=== PATIENT | male | born 1975 | race Caucasian/White ===

== ENCOUNTER → 2022-09-11 | Outpatient (CLI) | payer OTHER ==
--- NOTE | 2022-09-11 10:12 | XR ---
EXAMINATION TYPE: XR ribs bilat w pa chest xray DATE OF EXAM: 09/11/2022 COMPARISON: NONE HISTORY: Pain TECHNIQUE: 9 views submitted FINDINGS: Lungs are clear with no sizable pneumothorax. Rib cage is intact with no acute displaced ri b fracture. Surgical clips are seen in the gallbladder fossa. IMPRESSION: No acute displaced rib fracture.
== END | disposition home or self-care (01) ==
LOC: RADXRMAIN 09:02
PROVIDERS: ATTEND Internal Medicine
DX: S23.41XA Sprain of ribs, initial encounter (principal)
CPT/HCPCS: 71111

== ENCOUNTER → 2022-10-13 | Outpatient (CLI) | payer OTHER ==
--- NOTE | 2022-10-13 10:00 | US ---
EXAMINATION TYPE: US abdomen complete DATE OF EXAM: 10/13/2022 COMPARISON: US 2009 CLINICAL INDICATION: Male, 46 years old with history of R10.9 ABN PAIN; Pt states generalized ABD jaelyn n- GB surgically absent TECHNIQUE: Multiple sonographic images of the abdomen are obtained. FINDINGS: EXAM MEASUREMENTS: Liver Length: 18.2 cm CBD: 0.5 cm Spleen: 11.5 cm Right Kidney: 12.3 x 5.8 x 6.0 cm Left Kidney: 11.8 x 6.0 x 5.7 cm SUBSTATION ELECTRICIAN SUPERVISOR NOTES: Pancreas: Head wnl, body and tail obscured by overlying bowel gas Liver: Heterogeneous, enlarged Gallbladder: Surgically absent CBD: wnl Spleen: wnl Right Kidney: wnl Left Kidney: wnl Upper IVC: wnl Abd Aorta: Proximal portion obscured by overlying bowel gas, mid and distal portion wnl The liver is enlarged and heterogenous in echotexture. No focal lesion identified. The intrahepatic p ortion of the IVC and visualized abdominal aorta are within normal limits. The proximal portion is ob scured by overlying bowel gas. The gallbladder surgically absent. Common bile duct is unremarkable. The visualized portions of the pancreatic head are unremarkable. The body and tail is obscured by ov erlying bowel gas. The spleen is unremarkable. Kidneys are symmetric and free of hydronephrosis. No renal lesions are seen. IMPRESSION: 1. No acute process. 2. Hepatomegaly with heterogenous increased echotexture of the liver which is most commonly seen with hepatic steatosis. No focal lesion identified. 3. Postcholecystectomy changes.
== END | disposition home or self-care (01) ==
LOC: RADUSWWP 08:03
PROVIDERS: ATTEND Internal Medicine
DX: R16.0 Hepatomegaly, not elsewhere classified (principal); R10.9 Unspecified abdominal pain; Z90.49 Acquired absence of other specified parts of digestive tract
CPT/HCPCS: 76700

== ENCOUNTER 2023-03-24 06:05 | Emergency (ER) | payer OTHER ==
[2023-03-24 06:32] VITALS: TEMP 97.8
[2023-03-24] MEDS ORDERED: SODIUM CHLORIDE 0.9% 500 ML 500 ML IV ONE (06:58)
[2023-03-24] MEDS ORDERED: FAMOTIDINE 20 MG/2 ML VIAL IV STA (06:58)
[2023-03-24] MEDS ORDERED: METOCLOPRAMIDE 5 MG/ML 2 ML VIAL IVP STA (06:58)
[2023-03-24] MEDS ORDERED: SODIUM CHLORIDE 0.9% 1,000 ML IV ONE (06:58)
[2023-03-24] MEDS ORDERED: DICYCLOMINE 20 MG TAB PO STA (06:58)
[2023-03-24 07:00] LABS: Basophils % (A) 0 %; Eosinophils # (A) 0.1 k/uL (0-0.7); Eosinophils % (A) 2 %; HCT 49.3 % (39.0-53.0); HGB 16.9 gm/dL (13.0-17.5); Lymphocytes # (A) 1.8 k/uL (1.0-4.8); Lymphocytes % (A) 29 %; MCH 30.7 pg (25.0-35.0); MCHC 34.3 g/dL (31.0-37.0); MCV 89.6 fL (80.0-100.0); Mean Platelet Volume 7.3; Monocytes # (A) 0.4 k/uL (0-1.0); Monocytes % (A) 7 %; Neutrophils # (A) 3.9 k/uL (1.3-7.7); Neutrophils % (A) 61 %; Platelet Count 257 k/uL (150-450); RDW 12.1 % (11.5-15.5); WBC 6.4 k/uL (3.8-10.6)
--- NOTE | 2023-03-24 07:14 | ED ---
Abdominal Pain HPI - General Chief Complaint: Abdominal Pain Stated Complaint: Abdominal Pain Time Seen by Provider: 03/24/23 06:12 Source: patient, RN notes reviewed Mode of arrival: ambulatory Limitations: no limitations - History of Present Illness Initial Comments: 47-year-old male presents emergency Department with chief complaint of abdominal discomfort, bloating. Patient states that started approximate one month ago by his gradual he worsen. States he always had some bowel issues after his cholecystectomy but this is much worsened usual. He's had no prior colonoscopy. Denies any melena, hematochezia, 16 nausea vomiting diarrhea or change in bowel habits. Patient states pain is greater than lower abdomen. Patient denies any other abdominal surgeries. - Related Data Allergies Allergy/AdvReac Type Severity Reaction Status Date / Time No Known Allergies Allergy Verified 03/24/23 06:10 Review of Systems ROS Statement: Those systems with pertinent positive or pertinent negative responses have been documented in the HPI. ROS Other: All systems not noted in ROS Statement are negative. Past Medical History Past Medical History: GERD/Reflux, Hyperlipidemia, Hypertension History of Any Multi-Drug Resistant Organisms: None Reported Past Surgical History: Cholecystectomy, Joint Replacement Additional Past Surgical History / Comment(s): Left knee surgery Past Psychological History: Anxiety Smoking Status: Former smoker Past Alcohol Use History: Occasional Past Drug Use History: Marijuana General Exam Limitations: no limitations General appearance: alert, in no apparent distress Head exam: Present: atraumatic, normocephalic, normal inspection Eye exam: Present: normal appearance, PERRL, EOMI. Absent: scleral icterus, conjunctival injection, periorbital swelling ENT exam: Present: normal exam, normal oropharynx, mucous membranes moist Neck exam: Present: normal inspection, full ROM. Absent: tenderness, meningismus, lymphadenopathy Respiratory exam: Present: normal lung sounds bilaterally. Absent: respiratory distress, wheezes, rales, rhonchi, stridor Cardiovascular Exam: Present: regular rate, normal rhythm, normal heart sounds. Absent: systolic murmur, diastolic murmur, rubs, gallop, clicks GI/Abdominal exam: Present: soft, tenderness, normal bowel sounds. Absent: distended, guarding, rebound, rigid Back exam: Absent: CVA tenderness (R), CVA tenderness (L) Neurological exam: Present: alert Skin exam: Present: warm, dry, intact, normal color. Absent: rash Course Vital Signs 03/24/23 03/24/23 06:07 08:23 Temperature 97.8 F 97.8 F Pulse Rate 59 L 66 Respiratory 18 17 Rate Blood Pressure 132/89 147/98 O2 Sat by Pulse 95 98 Oximetry Medical Decision Making - Medical Decision Making Was pt. sent in by a medical professional or institution (, SHIRIN, EXERCISE PHYSIOLOGIST CERTIFIED, urgent care, hospital, or [facility]...) When possible be specific @ -No Did you speak to anyone other than the patient for history (EMS, parent, family, police, friend...)? What history was obtained from this source @ -No Did you review nursing and triage notes (agree or disagree)? Why? @ -I reviewed and agree with nursing and triage notes Were old charts reviewed (outside hosp., previous admission, EMS record, old EKG, old radiological studies, urgent care reports/EKG's, [facility] records)? Report findings @ -No old charts were reviewed Differential Diagnosis (chest pain, altered mental status, abdominal pain women, abdominal pain men, vaginal bleeding, weakness, fever, dyspnea, syncope, headache, dizziness, GI bleed, back pain, seizure, CVA, palpatations, mental health, musculoskeletal)? @ -Differential Abdominal Pain Men: Appendicitis, cholecystitis, diverticulosis, ischemic bowel, pancreatitis, hepatitis, UTI, gastroenteritis, AAA, incarcerated hernia, bowel obstruction, constipation, inflammatory bowel, hepatitis, peptic ulcer disease, splenic infarction, perforated viscus, testicular torsion, this is not meant to be an all-inclusive list EKG interpreted by me (3pts min.). @ -None X-rays interpreted by me (1pt min.). @ -None done CT interpreted by me (1pt min.). @ -CT of the pelvis shows evidence of diverticulosis, mild ileus versus enteritis changes U/S interpreted by me (1pt. min.). @ -None done What testing was considered but not performed or refused? (CT, X-rays, U/S, labs)? Why? @ -None What meds were considered but not given or refused? Why? @ -None Did you discuss the management of the patient with other professionals (professionals i.e. SHIRIN Reynolds, EXERCISE PHYSIOLOGIST CERTIFIED, lab, RT, psych nurse, social insurance administrator, crystal lapper, teacher, emergency communications officer, case managers)? Give summary @ -No Was smoking cessation discussed for >3mins.? @ -No Was critical care preformed (if so, how long)? @ -No Were there social determinants of health that impacted care today? How? (Homelessness, low income, unemployed, alcoholism, drug addiction, transportation, low edu. Level, literacy, decrease access to med. care, long-term, rehab)? @ -No Was there de-escalation of care discussed even if they declined (Discuss DNR or withdrawal of care, Hospice)? DNR status @ -No What co-morbidities impacted this encounter? (DM, HTN, Smoking, COPD, CAD, Cancer, CVA, ARF, Chemo, Hep., AIDS, mental health diagnosis, sleep apnea, morbid obesity)? @ -None Was patient admitted / discharged? Hospital course, mention meds given and route, prescriptions, significant lab abnormalities, going to OR and other pertinent info. @ -Discharge patient left wrist there is, CT is unremarkable. Patient may have underlying GI disorder follow-up with Dr. Diop. Patient will start probiotic return parameters discussed. Undiagnosed new problem with uncertain prognosis? @ -No Drug Therapy requiring intensive monitoring for toxicity (Heparin, Nitro, Insulin, Cardizem)? @ -No Were any procedures done? @ -No Diagnosis/symptom? @ -Abdominal pain Acute, or Chronic, or Acute on Chronic? @ -Acute Uncomplicated (without systemic symptoms) or Complicated (systemic symptoms)? @ -Uncomplicated Side effects of treatment? @ -No Exacerbation, Progression, or Severe Exacerbation? @ -No Poses a threat to life or bodily function? How? (Chest pain, [place], [place], pneumonia, PE, COPD, DKA, ARF, appy, cholecystitis, CVA, Diverticulitis, Homicidal, Suicidal, threat to staff... and all critical care pts) @ -No - Lab Data Result diagrams: 03/24/23 06:39 03/24/23 06:39 Lab Results 03/24/23 03/24/23 03/24/23 Range/Units 06:39 06:39 06:39 WBC 6.4 (3.8-10.6) k/uL RBC 5.50 (4.30-5.90) m/uL Hgb 16.9 (13.0-17.5) gm/dL Hct 49.3 (39.0-53.0) % MCV 89.6 (80.0-100.0) fL MCH 30.7 (25.0-35.0) pg MCHC 34.3 (31.0-37.0) g/dL RDW 12.1 (11.5-15.5) % Plt Count 257 (150-450) k/uL MPV 7.3 Neutrophils % 61 % Lymphocytes % 29 % Monocytes % 7 % Eosinophils % 2 % Basophils % 0 % Neutrophils # 3.9 (1.3-7.7) k/uL Lymphocytes # 1.8 (1.0-4.8) k/uL Monocytes # 0.4 (0-1.0) k/uL Eosinophils # 0.1 (0-0.7) k/uL Basophils # 0.0 (0-0.2) k/uL Sodium 140 (137-145) mmol/L Potassium 4.5 (3.5-5.1) mmol/L Chloride 106 (98-107) mmol/L Carbon Dioxide 22 (22-30) mmol/L Anion Gap 12 mmol/L BUN 15 (9-20) mg/dL Creatinine 0.83 (0.66-1.25) mg/dL Est GFR (CKD-EPI)AfAm >90 (>60 ml/min/1.73 sqM) Est GFR (CKD-EPI)NonAf >90 (>60 ml/min/1.73 sqM) Glucose 127 H (74-99) mg/dL Calcium 9.4 (8.4-10.2) mg/dL Total Bilirubin 0.7 (0.2-1.3) mg/dL AST 47 (17-59) U/L ALT 68 H (4-49) U/L Alkaline Phosphatase 80 (38-126) U/L Total Protein 6.9 (6.3-8.2) g/dL Albumin 4.3 (3.5-5.0) g/dL Amylase 42 (30-110) U/L Lipase 65 (23-300) U/L Urine Color Yellow Urine Appearance Clear (Clear) Urine pH 5.0 (5.0-8.0) Ur Specific [place] 1.024 (1.001-1.035) Urine Protein Negative (Negative) Urine Glucose (UA) Negative (Negative) Urine Ketones Negative (Negative) Urine Blood Negative (Negative) Urine Nitrite Negative (Negative) Urine Bilirubin Negative (Negative) Urine Urobilinogen <2.0 (<2.0) mg/dL Ur Leukocyte Esterase Negative (Negative) Disposition Clinical Impression: Abdominal pain Disposition: HOME SELF-CARE Condition: Stable Instructions (If sedation given, give patient instructions): Abdominal Pain (ED) Additional Instructions: Please return to the Emergency Department if symptoms worsen or any other concerns. Is patient prescribed a controlled substance at d/c from ED?: No Referrals: Sammie Retana MD [Primary Care Provider] - 1-2 days Safia Diop MD [STAFF PHYSICIAN] - 1-2 days Time of Disposition: 08:21
[2023-03-24 07:21] LABS: ALT 68 U/L (4-49); AST 47 U/L (17-59); African American GFR (CKD) >90 (>60 ml/min/1.73 sqM); Albumin 4.3 g/dL (3.5-5.0); Alkaline Phosphatase 80 U/L (38-126); Amylase 42 U/L (30-110); Anion Gap 12 mmol/L; Blood Urea Nitrogen 15 mg/dL (9-20); Calcium 9.4 mg/dL (8.4-10.2); Carbon Dioxide 22 mmol/L (22-30); Chloride 106 mmol/L (98-107); Glucose 127 mg/dL (74-99); Lipase 65 U/L (23-300); Non-African American GFR(CKD) >90 (>60 ml/min/1.73 sqM); Potassium 4.5 mmol/L (3.5-5.1); Sodium 140 mmol/L (137-145); Total Bilirubin 0.7 mg/dL (0.2-1.3); Total Protein 6.9 g/dL (6.3-8.2)
[2023-03-24 07:36] LABS: Appearance,Urine Clear (Clear); Bilirubin,Urine Negative (Negative); Blood,Urine Negative (Negative); Color,Urine Yellow; Glucose,Urine (UA) Negative (Negative); Ketones,Urine Negative (Negative); Leukocyte Esterase,Urine Negative (Negative); Nitrite,Urine Negative (Negative); Protein,Urine Negative (Negative); Specific Gravity,Urine 1.024 (1.001-1.035); Urobilinogen,Urine <2.0 mg/dL (<2.0)
--- NOTE | 2023-03-24 07:49 | CT ---
EXAMINATION TYPE: CT abdomen pelvis w con DATE OF EXAM: 03/24/2023 COMPARISON: NONE HISTORY: 47-year-old male generalized pain, bloating TECHNIQUE: Contiguous axial scanning of the abdomen and pelvis following administration of 100 ml Iso eula r300 IV contrast. Delayed images through the kidneys and coronal/sagittal reconstructions perfor med. CT DLP: 1309.7 mGycm Automated exposure control for dose reduction was used. FINDINGS: LUNG BASES: No significant abnormality is appreciated. LIVER/GB: Diffuse low attenuation of the hepatic parenchyma without focal lesion. No biliary ductal d ilatation. Portal venous system is patent. Cholecystectomy clips. PANCREAS: No significant abnormality is seen. SPLEEN: No significant abnormality is seen. ADRENALS: No significant abnormality is seen. KIDNEYS: No significant abnormality is seen. BOWEL: Tiny hiatal hernia. No dilated small bowel, free fluid, or free air. Prominent fluid-filled s mall bowel loops throughout the mid abdomen. Normal appendix. There is mild overall stool burden. Mil d sigmoid diverticulosis. No pericolonic inflammatory change. LYMPH NODES: No suspicious greater than 1 cm lymph node is identified. OTHER: Tiny fatty umbilical hernia. Otherwise, no significant abnormality is identified. PELVIS: Bladder partially distended. Multiple pelvic phleboliths. Prostate gland is borderline enlarg ed at 4.1 cm wide. No abnormal fluid collection in the pelvis or pelvic lymphadenopathy. BONES: Moderate degenerative disc disease L5-S1. Mild degenerative disc disease lower thoracic spine. IMPRESSION: 1. SOME PROMINENT FLUID-FILLED SMALL BOWEL LOOPS IN THE MIDABDOMEN MAY BE TRANSIENT OR COULD REPRESEN T A REGIONAL ILEUS OR ENTERITIS. 2. TINY HIATAL HERNIA AND HEPATIC STEATOSIS. PATIENT STATUS POST CHOLECYSTECTOMY. 3. MILD SIGMOID DIVERTICULOSIS WITHOUT ACUTE DIVERTICULITIS.
[2023-03-24 08:26] VITALS: BP 147/98; PULSE 66; RESP 17
== END 2023-03-24 08:34 | disposition home or self-care (01) ==
LOC: EC 06:05
DX: K57.30 Diverticulosis of large intestine without perforation or abscess without bleeding (principal); I10 Essential (primary) hypertension; F12.90 Cannabis use, unspecified, uncomplicated; Z90.49 Acquired absence of other specified parts of digestive tract; Z87.891 Personal history of nicotine dependence
CPT/HCPCS: 36415; 80053; 82150; 83690; 85025; 81003; 74177; 99284; 96374; 96375; 96361; J2765; J3490; Q9967

== ENCOUNTER → 2023-04-30 | Outpatient (CLI) | payer OTHER ==
--- NOTE | 2023-04-30 11:53 | CA ---
Transthoracic Echo Report Name: Casa Chan Age: 47 Gender: M : 1975 Exam Date: 04/30/2023 08:43 Exam Location: [facility] Ht (in): 74 Wt (lb): 230 Ordering Physician: Rojelio Swanson MD ([id number]) Attending/Referring Phys: Client Relationship Executive Sandhya Oreilly RDCS Procedure CPT: Indications: R07.9 CHEST PAIN Cardiac Hx: Technical Quality: Good Contrast 1: Total Dose (mL): Contrast 2: Total Dose (mL): MEASUREMENTS (Male / Female) Normal Values 2D ECHO LV Diastolic Diameter PLAX 4.1 cm 4.2 - 5.9 / 3.9 - 5.3 cm LV Systolic Diameter PLAX 2.5 cm IVS Diastolic Thickness 1.4 cm 0.6 - 1.0 / 0.6 - 0.9 cm LVPW Diastolic Thickness 1.3 cm 0.6 - 1.0 / 0.6 - 0.9 cm LV Relative Wall Thickness 0.7 RV Internal Dim ED PLAX 3.6 cm LA Systolic Diameter LX 4.1 cm 3.0 - 4.0 / 2.7 - 3.8 cm LV Diastolic Volume MOD BP 117.3 cm??? 67 - 155 / 56 - 104 cm??? LV Systolic Volume MOD BP 52.1 cm??? - 58 / 19 - 49 cm??? LV Ejection Fraction MOD BP 55.6 % >= 55 % LV Cardiac Index MOD BP 1717.1 cm???/min???m??? LV Diastolic Volume MOD 4C 124.7 cm??? LV Systolic Volume MOD 4C 57.9 cm??? LV Ejection Fraction MOD 4C 53.6 % LV Cardiac Index MOD 4C 1760.3 cm???/min???m??? LV Diastolic Length 4C 8.0 cm LV Systolic Length 4C 7.5 cm LV Diastolic Volume MOD 2C 107.3 cm??? LV Systolic Volume MOD 2C 46.9 cm??? LV Ejection Fraction MOD 2C 56.3 % LV Cardiac Index MOD 2C 1590.1 cm???/min???m??? LV Diastolic Length 2C 8.3 cm LV Systolic Length 2C 8.0 cm LA Volume 70.0 cm??? 18 - 58 / 22 - 52 cm??? LA Volume Index 29.7 cm???/m??? 16 - 28 cm???/m??? M-MODE Aortic Root Diameter MM 3.8 cm AV Cusp Separation MM 2.7 cm DOPPLER AV Peak Velocity 131.9 cm/s AV Peak Gradient 7.0 mmHg MV Area PHT 3.3 cm??? Mitral E Point Velocity 79.1 cm/s Mitral A Point Velocity 69.0 cm/s Mitral E to A Ratio 1.1 MV Deceleration Time 227.0 ms MV E' Velocity 7.4 cm/s Mitral E to MV E' Ratio 10.6 TR Peak Velocity 218.8 cm/s TR Peak Gradient 19.1 mmHg Right Ventricular Systolic Press 24.1 mmHg FINDINGS Left Ventricle Left ventricular ejection fraction is estimated at 55-60 %. Left ventricular cavity size normal. Moderate concentric left ventricular hypertrophy. Right Ventricle Right ventricular dilatation. Right ventricular systolic pressure within normal limits. Right Atrium Normal right atrial size. Left Atrium Mildly increased left atrial diameter. Mildly increased left atrial volume. Mildly increased left atrial area. Mitral Valve Structurally normal mitral valve. Trace mitral regurgitation. Aortic Valve Trileaflet aortic valve. No aortic stenosis. Tricuspid Valve Structurally normal tricuspid valve. Trace to mild tricuspid regurgitation. Pulmonic Valve Structurally normal pulmonic valve. No pulmonic regurgitation. Pericardium No pericardial effusion. Aorta Mild aortic dilatation at the level of the sinuses of valsalva 38 mm CONCLUSIONS Left ventricular ejection fraction 55-60% Moderate increased left ventricular wall thickness Mildly dilated left atrium Trace mitral regurgitation Previewed by: Dr. Sandor Zheng DO (Electronically Signed) Final Date: 30 April 2023 11:52
== END | disposition home or self-care (01) ==
LOC: RADECHMAIN 08:09
PROVIDERS: ATTEND Internal Medicine Interventional Cardiology
DX: I34.0 Nonrheumatic mitral (valve) insufficiency (principal); R07.9 Chest pain, unspecified
CPT/HCPCS: 93017; 93306

== ENCOUNTER → 2023-08-12 | Outpatient (CLI) | payer OTHER ==
--- NOTE | 2023-08-12 08:50 | CT ---
EXAMINATION TYPE: CT brain w con DATE OF EXAM: 08/12/2023 COMPARISON: HISTORY: AGUILAR CT DLP: 1275 mGycm Automated Exposure Control for Dose Reduction was Utilized. TECHNIQUE: CT scan of the head is performed with IV contrast.,CT scan of the head is performed withou t and with with IV Contrast, patient injected with 100 mL of Isovue 300. CLINICAL HISTORY: Headaches COMPARISON: None. FINDINGS: Noncontrast images show no acute intracranial hemorrhage or midline shift. The ventricles and sulci are within normal limits in size. Postcontrast images show no suspicious enhancing intrapa renchymal mass. The globes are intact and the visualized sinuses are clear. Prominent cisterna magna. Congenital cavu m septum variant. There is a small 2 mm prominence of the anterior communicating artery. Mild changes of chronic sinusitis. IMPRESSION: 1. There is a nodular appearance of the anterior communicating artery measuring 2 mm. Suspect a small aneurysm. Recommend MRA [place] of [place]...
== END | disposition home or self-care (01) ==
LOC: RADCTMAIN 07:50
PROVIDERS: ATTEND Internal Medicine
DX: R51.9 Headache, unspecified (principal)
CPT/HCPCS: 70460; Q9967

== ENCOUNTER → 2023-08-30 | Outpatient (CLI) | payer OTHER ==
--- NOTE | 2023-08-31 10:20 | MR ---
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 IV Contrast: None 11 cc Gadavist Findings: Vertebral arteries: The vertebral arteries are patent. Vertebral arteries are: Codominant. Basilar artery: The basilar artery is intact. The basilar artery bifurcation is normal. Internal Carotid arteries: The cervical, petrous, cavernous and supraclinoid segments are normal. SHAMIR: 2 mm focal outpouching near the anterior technique a artery and anterior cerebral artery. ACOM: Present without evidence of aneurysm. MCA: Patent with no evidence of aneurysm. CISTERN ROOM WORKING SUPERVISOR: Patent with no evidence of aneurysm. PCOM: Hypoplastic bilaterally. 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
== END | disposition home or self-care (01) ==
LOC: RADMRIMAIN 20:40
PROVIDERS: ATTEND Internal Medicine
DX: I67.1 Cerebral aneurysm, nonruptured (principal)
CPT/HCPCS: 70546; A9585

== ENCOUNTER → 2023-12-30 | Outpatient (CLI) | payer OTHER | END | disposition home or self-care (01) | LOC: LABWHC1 11:37 | PROVIDERS: ATTEND Internal Medicine | DX: E11.9 Type 2 diabetes mellitus without complications (principal) | CPT/HCPCS: 36415; 84681; 86337 ==